=== PATIENT | male | born 1965 | race Caucasian/White ===

== ENCOUNTER 2018-07-29 08:24 | Day surgery (SDC) | payer MEDICARE ==
[~2018-07-29] VITALS: Ht 165.1 cm; Wt 75.0 kg
[~2018-07-29 08:24] MED LIST: ACET-784 PO; AMLO5TAB66 PO; ASCO500 PO; ASPI-1182 PO; ATOR40TA28 PO; BACL10TA PO; CHOL200018 PO; CYAN500 PO; FURO20TA4 PO; HYDR25TA PO; INSLAN SQ; ISOS30TA6 PO; LISI-662 PO; MAGN250T29 PO; METO-558 PO; NITR.4 SL; POTA8CAP10 PO; RANO500T3 PO; SERT100T12 PO; SILV20CR11 TP; [UNRECOGNIZED DRUG - CODE] TP; [UNRECOGNIZED DRUG - CODE] TP
[2018-07-29] MEDS ORDERED: CHOL50004 PO ×2 (08:55→09:11)
[2018-07-29] MEDS ORDERED: INSNOV SQ (08:56)
[2018-07-29] MEDS ORDERED: METOPROLOL TARTRATE 50 MG TABLET PO PRN (09:00)
[2018-07-29] MEDS ORDERED: 0.9% SODIUM CHLORIDE 10 ML SYRINGE IVP PRN (09:00)
[2018-07-29] MEDS ORDERED: ATRO10DR OU (09:02)
[2018-07-29] MEDS ORDERED: TICA90TA PO (09:02)
[2018-07-29] MEDS ORDERED: EXEN2VIA SQ (09:06)
[2018-07-29] MEDS ORDERED: FLUO20DR3 TP (09:06)
[2018-07-29 09:07] LABS: CALCIUM, TOTAL 8.9 mg/dL (8.8-10.5); CREATININE 1.43 mg/dL (0.60-1.30); POTASSIUM 5.6 mmol/L (3.5-5.1)
[2018-07-29] MEDS ORDERED: TIMO.5OS OU (09:08)
[2018-07-29] MEDS ORDERED: LOSA50TA25 PO (09:08)
[2018-07-29] MEDS ORDERED: ISOR40SR PO (09:08)
[2018-07-29] MEDS ORDERED: TRI405I TP (09:10)
[2018-07-29] MEDS ORDERED: NITROGLYCERIN 400 MCG/SUBLINGUAL SPRAY 4.9 GM BOTTLE SL ONE (09:27)
[2018-07-29] MEDS ORDERED: METOPROLOL TARTRATE 5 MG/5 ML VIAL ONE (09:27)
[2018-07-29] MEDS ORDERED: IOVERSOL 350 MG/ML 150 ML VIAL ONE (10:20)
[2018-07-29] MEDS ORDERED: SODIUM CHLORIDE 0.9% 100 ML ONE (10:21)
== END 2018-07-29 11:15 | disposition home or self-care (01) ==
LOC: SURGERY 08:24 → EDSTATUS 10:30 → SURGERY 11:15
PROVIDERS: ATTEND Internal Medicine Cardiovascular Disease
DX: I25.118 Atherosclerotic heart disease of native coronary artery with other forms of angina pectoris (principal); E11.22 Type 2 diabetes mellitus with diabetic chronic kidney disease; I13.0 Hypertensive heart and chronic kidney disease with heart failure and stage 1 through stage 4 chronic kidney disease, or unspecified chronic kidney disease; N18.3 Chronic kidney disease, stage 3 (moderate); I50.9 Heart failure, unspecified; E78.00 Pure hypercholesterolemia, unspecified; F32.9 Major depressive disorder, single episode, unspecified; F43.9 Reaction to severe stress, unspecified; Z79.4 Long term (current) use of insulin; Z79.891 Long term (current) use of opiate analgesic; Z79.82 Long term (current) use of aspirin; Z79.84 Long term (current) use of oral hypoglycemic drugs; Z95.5 Presence of coronary angioplasty implant and graft; Z98.890 Other specified postprocedural states; Z79.899 Other long term (current) drug therapy
CPT/HCPCS: 36415; 75574; 80048; 93005; J7050; Q9967; J3490